=== PATIENT | female | born 1970 ===

== ENCOUNTER 2022-12-31 08:52 | Inpatient (IN) | payer OTHER, SELFPAY ==
[2022-12-31] VITALS (13 sets, daily range): BP systolic 102–137; BP diastolic 68–89; PULSE 71–86; RESP 16–18; TEMP 35.9–37; O2SAT 94–99; BMI 27.5; BMI 28.2
[2022-12-31 09:15] LABS: Appearance Urine Slightly Cloudy (Clear); Bilirubin Urine Negative (Negative); Blood Urine Trace-intact (Negative); Color Urine Yellow (Yellow); Glucose Urine Negative (Negative); Ketones Urine 1+ (Negative); Leukocyte Esterase Urine Negative (Negative); Nitrite Urine Negative (Negative); Protein Urine 1+ (Negative); Specific Gravity Urine 1.025 (1.000-1.030); Urobilinogen Urine 0.2 (0.2-1.0)
--- NOTE | 2022-12-31 09:21 | CRLHL7_ITS ---
For Patients: As a result of the Century Cures Act, medical imaging exams and procedure reports are released immediately into your electronic medical record. You may view this report before your referring provider. If you have questions, please contact your health care provider. INDICATION: . TECHNIQUE: CT abdomen and pelvis acquired with 100 cc Omnipaque 350 IV contrast. COMPARISON: None. FINDINGS: Lower chest: Unremarkable. Liver: Unremarkable. Normal in size and attenuation. No suspicious masses. Gallbladder and bile ducts: Unremarkable. No stones or inflammation. No biliary dilatation. Pancreas: Unremarkable. No mass or inflammation. Spleen: Unremarkable. Normal in size. No masses. Adrenal glands: Unremarkable. No nodules. Kidneys: Unremarkable. No suspicious masses, stones, or hydronephrosis. GI tract: Short segmental circumferential uniform wall thickening of the descending colon associated with diverticular disease and pericolic fat stranding consistent with acute diverticulitis complicated by coalescent extraluminal gas posteromedial to the colon (series 2; images 81-91) consistent with microperforation. Normal appendix. Vasculature: Abdominal aorta is normal in caliber. Mesenteric arteries are patent. Lymph nodes: No lymphadenopathy. Peritoneum/Abdominal Wall: Trace pelvic ascites. No abscess. Pelvis: Unremarkable. Bones: Unremarkable for age. IMPRESSION: Acute diverticulitis of the descending colon complicated by microperforation. Trace pelvic ascites. No abscess or pneumoperitoneum. Surgical consultation is advised. Please note that all CT scans at this facility use dose modulation, iterative reconstruction, and/or weight-based dosing when appropriate to reduce radiation dose to as low as reasonably achievable. Dictated by Rodrigo Quintana MD @ 12/31/2022 10:21:22 AM (Electronically Signed)
[2022-12-31 09:23] LABS: Bacteria Urine Many; Squamous Epithelial Cell Urine Moderate (None-Few)
--- NOTE | 2022-12-31 09:36 | ED.GENADULT ---
HPI - General Adult General Date Seen: 12/31/22 Chief complaint: Abdominal Pain Stated complaint: abdominal pain Time Seen by Provider: 12/31/22 08:53 Source: patient Mode of arrival: ambulatory Limitations: no limitations History of Present Illness HPI narrative: Patient is a 52-year-old female with no pertinent medical problems presenting to emergency department for left lower quadrant abdominal pain. She states symptoms 1st started 2 days ago and more mild but have been getting worse. She went to the bathroom today issues felt that she had a bowel movement in when she did she got very diaphoretic and felt like she was going to pass out. She no longer feels lightheaded but does states she still has a mild 3 3 to 4/10 pain in the left lower quadrant. She states she has somewhat similar symptoms several years ago when she had uterine fibroids but her uterus has been removed. Has not noticed any blood in stool. No history of diverticulosis or kidney stones. Denies dysuria, chest pain, shortness of breath, dizziness, fevers, chills, polyuria, diarrhea, constipation. She says she has not eaten anything yet today but does not feel dehydrated. Denies any nausea. States the pain is intermittently sharp and dull but is usually a dull pain Related Data Home Medications Medication Instructions Recorded Confirmed atorvastatin PO DAILY 12/31/22 Allergies Allergy/AdvReac Type Severity Reaction Status Date / Time Sulfa (Sulfonamide Allergy Mild GI upset Verified 12/31/22 09:03 Antibiotics) Review of Systems Status of ROS: Reports: 10 or more systems reviewed and unremarkable except as noted in History and below PFSH PFS Surgical History (Updated 12/31/22 @ 11:18 by Dennis Baez MD) History of umbilical hernia repair ?Z98.890 - Other specified postprocedural states (ICD-10) ?Z87.19 - Personal history of other diseases of the digestive system (ICD-10) S/P hysterectomy ?Z90.710 - Acquired absence of both cervix and uterus (ICD-10) Social History (Updated 12/31/22 @ 11:18 by Dennis Baez MD) Narrative: Patient works in [employer] from home. Smoking Status: Never smoker How often do you have a drink containing alcohol: 4 or more times a week How many standard drinks containing alcohol do you have on a typical day: 1 or 2 How often do you have six or more drinks on one occasion: Never AUDIT-C Alcohol total score: 4 Non-prescribed substance use: marijuana (any form) Exam Narrative: Exam Narrative: Const: Well-nourished, Well-developed, in mild distress Eyes: PERRL, no conjunctival injection, and symmetrical lids HENT: Atraumatic external nose and ears. Moist mucous membranes. Neck: Symmetric, trachea midline, No thyromegaly. CVS: RRR, No murmurs or gallops. Peripheral pulses 2+ and equal in all extremities RESP: Unlabored respiratory effort. Clear to auscultation bilaterally. GI: Nontender/Nondistended, No rebound or guarding. MSK:Extremities w/o deformity, Normal Active ROM Skin: Warm, Dry. No rashes or lesions. Neuro: Normal Muscle tone, No focal neurological deficits. Psych: Awake, Alert, & Oriented x3. Appropriate mood and affect. Const: Vital Signs, click to edit/add: Vital Signs - 24 hr 12/31/22 08:59 12/31/22 10:32 12/31/22 10:37 Temperature 96.7 F L Pulse Rate 75 79 Pulse Rate [Pulse Oximeter] 84 Respiratory Rate 16 Blood Pressure 107/68 Blood Pressure [Ri ght Upper Arm] 125/89 Pulse Oximetry 98 94 97 Oxygen Delivery Me thod Room Air 12/31/22 10:45 12/31/22 11:00 12/31/22 11:15 Temperature Pulse Rate 74 74 75 Pulse Rate [Pulse Oximeter] Respiratory Rate Blood Pressure Blood Pressure [Ri ght Upper Arm] Pulse Oximetry 97 96 99 Oxygen Delivery Me thod 12/31/22 11:17 Temperature Pulse Rate 72 Pulse Rate [Pulse Oximeter] Respiratory Rate Blood Pressure 124/74 Blood Pressure [Ri ght Upper Arm] Pulse Oximetry 98 Oxygen Delivery Me thod Course Vital Signs Vital signs: Initial Vital Signs Temperature 96.7 F L 12/31/22 08:59 Temperature Source Temporal Artery Scan 12/31/22 08:59 Pulse Rate 84 12/31/22 08:59 Respiratory Rate 16 12/31/22 08:59 Blood Pressure 125/89 12/31/22 08:59 Blood Pressure Mean 101 12/31/22 08:59 Blood Pressure Position Sitting 12/31/22 08:59 Pulse Oximetry 98 12/31/22 08:59 Oxygen Delivery Method Room Air 12/31/22 08:59 Vital Signs Temperature 96.7 F L 12/31/22 08:59 Pulse Rate 84 12/31/22 08:59 Respiratory Rate 16 12/31/22 08:59 Blood Pressure 125/89 12/31/22 08:59 Pulse Oximetry 98 12/31/22 08:59 Oxygen Delivery Method Room Air 12/31/22 08:59 Temperature 96.7 F L 12/31/22 08:59 Pulse Rate 72 12/31/22 11:17 Respiratory Rate 16 12/31/22 08:59 Blood Pressure 124/74 12/31/22 11:17 Pulse Oximetry 98 12/31/22 11:17 Oxygen Delivery Method Room Air 12/31/22 08:59 Medical Decision Making MDM Narrative Medical decision making narrative: patient is a 52-year-old female with left lower quadrant abdominal pain. Pain to going for few days. Worse today. She had episodes of diaphoresis and lightheadedness when she was trying a bowel movement that has since resolved. was still having some mild to moderate pain at this time. Does not want morphine will take Toradol she states. She states she feels thirsty And we will give her a L of fluids. CBC, CMP, lipase, urinalysis all ordered. Lab work returns showing no concerning abnormalities no clear signs of infection at this time. Urinalysis shows no concerning abnormalities. Does not appear to be infected. We did do the CT scan to look for signs of a kidney stone, diverticulitis or other abnormalities. It returned showing diverticulitis with microperforations. I spoke to the on-call surgeon, Dr. Baez, and she states patient needs to be admitted for IV antibiotics. Patient is agreeable to this plan. I spoke to Dr. Cano and he would accept her. She recommends starting her on Ertapenem. Lab Data Labs: Lab Results 12/31/22 12/31/22 Range/Units 09:08 09:32 WBC 9.88 (4.50-11.00) K/uL RBC 4.52 (4.00-5.20) m/uL Hgb 13.7 (12.0-16.0) gm/dL Hct 39.7 (33.0-51.0) % MCV 88 (80-100) fL MCH 30 (26-34) pg MCHC 35 (32-36) gm/dL RDW Coeff of Tj 12.1 (11.5-15.5) % Plt Count 205 (140-440) K/uL Neut % (Auto) 79.9 H (42.0-72.0) % Lymph % (Auto) 10.7 L (20-44) % [place] % (Auto) 8.6 (0.0-11.0) % Eos % (Auto) 0.4 (0.0-7.0) % Baso % (Auto) 0.2 (0.0-3.0) % Neut # (Auto) 7.90 H (1.7-7.0) K/uL Lymph # (Auto) 1.10 (0.90-2.90) K/uL [place] # (Auto) 0.80 (0.00-0.90) K/UL Eos # (Auto) 0.04 (0.00-0.50) K/uL Baso # (Auto) 0.02 (0.00-0.30) K/uL Abs Immat Gran (auto) 0.02 (0.00-0.30) K/uL Imm/Tot Granulo (auto) 0.2 % Sodium 139 (135-149) mmol/L Potassium 3.7 (3.6-5.1) mmol/L Chloride 104 (96-114) mmol/L Carbon Dioxide 24 (20-32) mmol/L Anion Gap 11 (7-15) mEq/L BUN 8 (7-30) mg/dL Creatinine 0.7 (0.5-1.5) mg/dL Estimated Creat Clear 86.52 Estimated GFR 105 ml/min Glucose 116 H (60-115) mg/dL Calcium 9.6 (8.4-10.6) mg/dL Total Bilirubin 0.9 (0.1-1.5) mg/dL AST 26 (12-35) U/L ALT 19 (4-35) U/L Alkaline Phosphatase 78 (40-150) U/L Total Protein 7.5 (6.0-8.3) g/dL Albumin 4.3 (3.3-5.0) g/dL Lipase 91 (23-300) U/L Urine Color Yellow (Yellow) Urine Appearance Slightly Cloudy A (Clear) Urine pH 7.0 (5.0-8.5) Ur Specific [place] 1.025 (1.000-1.030) Urine Protein 1+ A (Negative) Urine Glucose (UA) Negative (Negative) Urine Ketones 1+ A (Negative) Urine Blood Trace-intact A (Negative) Urine Nitrite Negative (Negative) Urine Bilirubin Negative (Negative) Urine Urobilinogen 0.2 (0.2-1.0) Ur Leukocyte Esterase Negative (Negative) Urine RBC 2-5 A (0-2) Urine WBC 2-5 (0-5) Ur Squamous Epith Cells Moderate A (None-Few) Urine Bacteria Many A (None) Imaging Data CT scan abdomen and pelvis: Radiologist's impression: INDICATION: . TECHNIQUE: CT abdomen and pelvis acquired with 100 cc Omnipaque 350 IV contrast. COMPARISON: None. FINDINGS: Lower chest: Unremarkable. Liver: Unremarkable. Normal in size and attenuation. No suspicious masses. Gallbladder and bile ducts: Unremarkable. No stones or inflammation. No biliary dilatation. Pancreas: Unremarkable. No mass or inflammation. Spleen: Unremarkable. Normal in size. No masses. Adrenal glands: Unremarkable. No nodules. Kidneys: Unremarkable. No suspicious masses, stones, or hydronephrosis. GI tract: Short segmental circumferential uniform wall thickening of the descending colon associated with diverticular disease and pericolic fat stranding consistent with acute diverticulitis complicated by coalescent extraluminal gas posteromedial to the colon (series 2; images 81-91) consistent with microperforation. Normal appendix. Vasculature: Abdominal aorta is normal in caliber. Mesenteric arteries are patent. Lymph nodes: No lymphadenopathy. Peritoneum/Abdominal Wall: Trace pelvic ascites. No abscess. Pelvis: Unremarkable. Bones: Unremarkable for age. IMPRESSION: Acute diverticulitis of the descending colon complicated by microperforation. Trace pelvic ascites. No abscess or pneumoperitoneum. Surgical consultation is advised. Please note that all CT scans at this facility use dose modulation, iterative reconstruction, and/or weight-based dosing when appropriate to reduce radiation dose to as low as reasonably achievable. Dictated by Rodrigo Quintana MD @ 12/31/2022 10:21:22 AM Discharge Plan Discharge Clinical Impression: Diverticulitis Patient Disposition: Admitted As Observation Discharge Location: [facility] Condition: Stable
[2022-12-31] MEDS: KETOROLAC 15 MG/ML inj IVP (09:39)
[2022-12-31 09:48] LABS: Basophils Absolute Auto 0.02 K/uL (0.00-0.30); Basophils Percent Auto 0.2 % (0.0-3.0); Eosinophils Absolute Auto 0.04 K/uL (0.00-0.50); Eosinophils Percent Auto 0.4 % (0.0-7.0); Hematocrit 39.7 % (33.0-51.0); Hemoglobin* 13.7 gm/dL (12.0-16.0); Immature Granulocytes Abs Auto 0.02 K/uL (0.00-0.30); Immature Granulocytes Pct Auto 0.2 %; Lymphocytes Percent Auto 10.7 % (20-44); Mean Corpuscular HGB Conc 35 gm/dL (32-36); Mean Corpuscular Hemoglobin 30 pg (26-34); Mean Corpuscular Volume 88 fL (80-100); Monocytes Percent Auto 8.6 % (0.0-11.0); Neutrophils Percent Auto 79.9 % (42.0-72.0); Platelet Count* 205 K/uL (140-440); RDW Coefficient of Variation % 12.1 % (11.5-15.5); Red Blood Count 4.52 m/uL (4.00-5.20); White Blood Count* 9.88 K/uL (4.50-11.00)
[2022-12-31 09:50] LABS: Slide Review Reflex No
[2022-12-31 10:06] LABS: Albumin* 4.3 g/dL (3.3-5.0); Chloride* 104 mmol/L (96-114)
[2022-12-31 10:07] LABS: Potassium* 3.7 mmol/L (3.6-5.1); Sodium* 139 mmol/L (135-149)
[2022-12-31 10:09] LABS: Alkaline Phosphatase* 78 U/L (40-150); Anion Gap 11 mEq/L (7-15); Aspartate Amino Transferase* 26 U/L (12-35); Bilirubin Total* 0.9 mg/dL (0.1-1.5); Carbon Dioxide* 24 mmol/L (20-32); Creatinine* 0.7 mg/dL (0.5-1.5); Est. Creatinine Clearance* 86.52; Estimated Glomerular Filt Rate 105 ml/min; Total Protein* 7.5 g/dL (6.0-8.3)
[2022-12-31 10:10] LABS: Alanine Aminotransferase* 19 U/L (4-35); Blood Urea Nitrogen* 8 mg/dL (7-30); Calcium* 9.6 mg/dL (8.4-10.6); Glucose* 116 mg/dL (60-115); Lipase* 91 U/L (23-300)
[2022-12-31] MEDS: LACTATED RINGERS 1000 ML 1,000 ML IV (10:15)
--- NOTE | 2022-12-31 11:13 | PM.GSCN ---
History of Present Illness Consult details Date Seen: 12/31/22 Consult date: 12/31/22 Narrative: 52-year-old female presented to emergency room with left lower quadrant abdominal pain and I was asked by Dr. London to see her in consultation. Patient states that she started to experience left lower quadrant abdominal pain on . She was not eating well because she did not have a great appetite. She continued to have small bowel movements in the last several days. Last night she felt chills and felt feverish. When she woke up in the morning her pain was significantly worse and she got sweaty while sitting on the toilet. She asked her to bring her to the emergency room. Patient describes her abdominal pain as sharp and constant. Patient has never had anything similar in the past. Patient had a colonoscopy in October of 2022 with pre cancerous polyp removed ?close to her rectum?. This was done at [facility] in [place]. Upon her workup she was found to have normal WBC. An abdominal CT was obtained that showed thickening in the short segment of the descending colon with fat stranding and localized free air consistent with microperforation. Review of Systems Narrative: General: no fevers HENT: no problems swallowing CV: no shortness of breath Resp: no cough GI: No nausea, vomiting, abdominal pain : no dysuria, no increased urinary frequency, no hematuria Skin: no new rashes Musculoskeletal: no back pain Neuro: no muscle weakness Psyche: no depression, no anxiety [facility] Surgical History (Updated 12/31/22 @ 11:18 by Dennis Baez MD) History of umbilical hernia repair ?Z98.890 - Other specified postprocedural states (ICD-10) ?Z87.19 - Personal history of other diseases of the digestive system (ICD-10) S/P hysterectomy ?Z90.710 - Acquired absence of both cervix and uterus (ICD-10) Social History (Updated 12/31/22 @ 11:18 by Dennis Baez MD) Narrative: Patient works in [employer] from home. Smoking Status: Never smoker How often do you have a drink containing alcohol: 4 or more times a week How many standard drinks containing alcohol do you have on a typical day: 1 or 2 How often do you have six or more drinks on one occasion: Never AUDIT-C Alcohol total score: 4 Non-prescribed substance use: marijuana (any form) Meds Home Medications and Allergies Home Medications Medication Instructions Recorded Confirmed Type atorvastatin PO DAILY 12/31/22 History Allergies Allergy/AdvReac Type Severity Reaction Status Date / Time Sulfa (Sulfonamide Allergy Mild GI upset Verified 12/31/22 09:03 Antibiotics) Exam Narrative: Exam Narrative: General appearance: Alert, cooperative, and in no distress Pulmonary: Chest symmetric, lungs clear bilaterally Cardiovascular Heart: Regular rate and rhythm, S1, S2, no murmurs/rubs/gallops Gastrointestinal Abdominal: soft, not distended, tender to palpation in left lower quadrant, not tender anywhere else Skin: Normal skin color, texture, and turgor. No rashes or lesions. Psychiatric: Alert, cooperative, normal affect. Const: Vital Signs, click to edit/add: Vital Signs - 24 hr 12/31/22 08:59 12/31/22 10:32 12/31/22 10:37 Temperature 96.7 F L Pulse Rate 75 79 Pulse Rate [Pulse Oximeter] 84 Respiratory Rate 16 Blood Pressure 107/68 Blood Pressure [Ri ght Upper Arm] 125/89 Pulse Oximetry 98 94 97 Oxygen Delivery Me thod Room Air 12/31/22 10:45 Temperature Pulse Rate 74 Pulse Rate [Pulse Oximeter] Respiratory Rate Blood Pressure Blood Pressure [Ri ght Upper Arm] Pulse Oximetry 97 Oxygen Delivery Me thod Results Labs Labs: Abnormal lab results 12/31/22 12/31/22 Range/Units 09:08 09:32 Neut % (Auto) 79.9 H (42.0-72.0) % Lymph % (Auto) 10.7 L (20-44) % Neut # (Auto) 7.90 H (1.7-7.0) K/uL Glucose 116 H (60-115) mg/dL Urine Appearance Slightly Cloudy A (Clear) Urine Protein 1+ A (Negative) Urine Ketones 1+ A (Negative) Urine Blood Trace-intact A (Negative) Urine RBC 2-5 A (0-2) Ur Squamous Epith Cells Moderate A (None-Few) Urine Bacteria Many A (None) Diabetes panel 12/31/22 Range/Units 09:32 Sodium 139 (135-149) mmol/L Potassium 3.7 (3.6-5.1) mmol/L Chloride 104 (96-114) mmol/L Carbon Dioxide 24 (20-32) mmol/L BUN 8 (7-30) mg/dL Creatinine 0.7 (0.5-1.5) mg/dL Glucose 116 H (60-115) mg/dL Calcium 9.6 (8.4-10.6) mg/dL AST 26 (12-35) U/L ALT 19 (4-35) U/L Alkaline Phosphatase 78 (40-150) U/L Total Protein 7.5 (6.0-8.3) g/dL Albumin 4.3 (3.3-5.0) g/dL Calcium panel 12/31/22 Range/Units 09:32 Calcium 9.6 (8.4-10.6) mg/dL Albumin 4.3 (3.3-5.0) g/dL Pituitary panel 12/31/22 Range/Units 09:32 Sodium 139 (135-149) mmol/L Potassium 3.7 (3.6-5.1) mmol/L Chloride 104 (96-114) mmol/L Carbon Dioxide 24 (20-32) mmol/L BUN 8 (7-30) mg/dL Creatinine 0.7 (0.5-1.5) mg/dL Glucose 116 H (60-115) mg/dL Calcium 9.6 (8.4-10.6) mg/dL Adrenal panel 12/31/22 Range/Units 09:32 Sodium 139 (135-149) mmol/L Potassium 3.7 (3.6-5.1) mmol/L Chloride 104 (96-114) mmol/L Carbon Dioxide 24 (20-32) mmol/L BUN 8 (7-30) mg/dL Creatinine 0.7 (0.5-1.5) mg/dL Glucose 116 H (60-115) mg/dL Calcium 9.6 (8.4-10.6) mg/dL Total Bilirubin 0.9 (0.1-1.5) mg/dL AST 26 (12-35) U/L ALT 19 (4-35) U/L Alkaline Phosphatase 78 (40-150) U/L Total Protein 7.5 (6.0-8.3) g/dL Albumin 4.3 (3.3-5.0) g/dL All other labs normal. Assessment and Plan Assessment and plan (1) Acute diverticulitis: Status: Acute Plan 52-year-old female presents with complicated descending diverticulitis. I discussed with the patient and her her laboratory and imaging findings. Her WBC is normal. On her CT she has a short segment of acute diverticulitis in the descending colon with pericolonic stranding and free air. This seems to be localized and her clinical exam is suggestive of localized inflammation. I recommended to admit this patient for observation and IV antibiotics. I would recommend keeping her NPO until tomorrow. Patient is not completely obstructed. If patient continues to improve clinically with her pain, we could discharge her home on IV antibiotics for at least 7 days.
[2022-12-31] MEDS: ERTAPENEM 1 GM in 0.9 % SODIUM CHLORIDE Mini-bag 100 ML IVPB (11:15)
[2022-12-31] MEDS: HYDROmorphone 0.5 mg/0.5 ml inj IVP ×6 (12:42→19:48)
[2022-12-31] MEDS: LACTATED RINGERS 1000 ML 1,000 ML 100 ML IV ×2 (13:23→21:57)
[2022-12-31] MEDS: ONDANSETRON 2 MG/ML inj 4 MG IVP ×2 (16:38→20:41)
--- NOTE | 2022-12-31 17:17 | PM.IMHP1 ---
Hospitalist- H&P: HPI History of Present Illness Date Seen: 12/31/22 Chief complaint: abdominal pain Narrative: Mera Villagran is a 52 year old previously healthy female admitted through the emergency department with 2-3 day history of left side abdominal pain. This began on December 28 with a left lower quadrant crampy pain. Symptoms were intermittent and fluctuating but progressively got worse over the next 2-3 days. This morning she felt the urge to have bowel movement she was sitting on the toilet having a bowel movement and she was suddenly feeling like she was about to pass out she said the room was starting to look dark she was diaphoretic. She laid on the floor and called for her . He called 911 and she was brought to the emergency room for evaluation. In the emergency department she was found to have diverticulitis with micro perforation. She has had no previous history of diverticulitis. She did have colonoscopy in October of 2022 through [facility]. They found a fairly large polyp that was reportedly pre cancerous. It sounds like it was in the sigmoid. They recommended repeat colonoscopy in 3 years. No other history of bowel or gastrointestinal problems. Past surgical history is unknown umbilical hernia repair, robotic assisted laparoscopic total hysterectomy. She has also had 2 vaginal deliveries, tonsillectomy and adenoidectomy as a child and wisdom teeth extractions. Review of Systems Narrative: Prior to the onset of symptoms 2-3 days ago she was feeling well. No other health concerns recently [facility] Medical History (Updated 12/31/22 @ 17:29 by J Luis Cano MD) Menopause ?Z78.0 - Asymptomatic menopausal state (ICD-10) Surgical History (Updated 12/31/22 @ 17:23 by J Luis Cano MD) H/O wisdom tooth extraction ?K08.409 - Partial loss of teeth, unspecified cause, unspecified class (ICD-10) History of tonsillectomy and adenoidectomy ?Z90.89 - Acquired absence of other organs (ICD-10) History of umbilical hernia repair ?Z98.890 - Other specified postprocedural states (ICD-10) ?Z87.19 - Personal history of other diseases of the digestive system (ICD-10) S/P hysterectomy ?Z90.710 - Acquired absence of both cervix and uterus (ICD-10) Family History (Updated 12/31/22 @ 17:24 by J Luis Cano MD) Mother High blood pressure Father High cholesterol Social History (Updated 12/31/22 @ 17:26 by J Luis Cano MD) Narrative: She is . Lives with her , dog and cat. Together they have 3 children who are adults. They live in [place]. 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 She does not smoke cigarettes. She drinks 2 alcoholic beverages per day. She occasionally consumes THC gummies. What is your current living situation?: I presently have a place to live Problems where you live: no known problems Problems where you live details: N/A In the past 12 months, utilities in danger of being shut off: no In past 12 months, lack of transportation kept you from medical appts, meetings, work, or getting things needed for daily living: no In the past 12 mos, have been you worried that your food would run out before you had money to buy more?: never true In the past 12 mos, the food you bought just didn't last and you didn't have money to buy more?: never true Smoking Status: Unknown if ever smoked How often do you have a drink containing alcohol: 4 or more times a week How many standard drinks containing alcohol do you have on a typical day: 1 or 2 How often do you have six or more drinks on one occasion: Never AUDIT-C Alcohol total score: 4 Non-prescribed substance use: denies use Caffeine: Yes How often does anyone, including family, friends and others, physically hurt you: never How often does anyone, including family, friends and others, insult or talk down to you: never How often does anyone, including family, friends and others, threaten you with harm: never How often does anyone, including family, friends and others, scream or curse at you: never service: No Meds Home Medications and Allergies Home Medications Medication Instructions Recorded Confirmed Type atorvastatin 20 mg tablet 20 mg PO HS 12/31/22 12/31/22 History estradiol 0.25 mg/0.25 gram (0.1 1 packet transdermal DAILY 12/31/22 12/31/22 History %) transdermal gel packet loratadine 10 mg tablet (Claritin) 10 mg PO DAILY 12/31/22 12/31/22 History progesterone micronized 200 mg 200 mg PO QPM 12/31/22 12/31/22 History capsule valacyclovir 1 gram tablet 2,000 mg PO BID 12/31/22 12/31/22 History Allergies Allergy/AdvReac Type Severity Reaction Status Date / Time Sulfa (Sulfonamide Allergy Mild GI upset Verified 12/31/22 09:03 Antibiotics) Exam Narrative: Exam Narrative: She is alert and appears in no distress. Eyes normal. Oropharynx with small airway. Neck is supple without mass or adenopathy. Respirations are clear to auscultation. Cardiovascular: S1, S2, regular rate and rhythm. No murmur gallop or rub. Abdomen: Bowel sounds active. Abdomen is soft. She has moderate left lower quadrant tenderness. No other tenderness. No peritonitis. Extremities without edema. She moves all 4 extremities well. No rash. Const: Vital Signs, click to edit/add: Vital Signs - 24 hr 12/31/22 08:59 12/31/22 10:32 12/31/22 10:37 Temperature 96.7 F L Pulse Rate 75 79 Pulse Rate [Apical ] Pulse Rate [Pulse Oximeter] 84 Respiratory Rate 16 Blood Pressure 107/68 Blood Pressure [Le ft Arm] Blood Pressure [Ri ght Upper Arm] 125/89 Pulse Oximetry 98 94 97 [facility] 12/31/22 10:45 12/31/22 11:00 12/31/22 11:15 Temperature Pulse Rate 74 74 75 Pulse Rate [Apical ] Pulse Rate [Pulse Oximeter] Respiratory Rate Blood Pressure Blood Pressure [Le ft Arm] Blood Pressure [Ri ght Upper Arm] Pulse Oximetry 97 96 99 [facility] 12/31/22 11:17 12/31/22 11:54 12/31/22 15:00 Temperature 98.2 F Pulse Rate 72 Pulse Rate [Apical ] 77 74 Pulse Rate [Pulse Oximeter] Respiratory Rate 18 18 Blood Pressure 124/74 Blood Pressure [Le ft Arm] 137/82 Blood Pressure [Ri ght Upper Arm] Pulse Oximetry 98 97 [facility] 12/31/22 15:00 Temperature 98.2 F Pulse Rate Pulse Rate [Apical ] 74 Pulse Rate [Pulse Oximeter] Respiratory Rate 18 Blood Pressure Blood Pressure [Le ft Arm] 115/84 Blood Pressure [Ri ght Upper Arm] Pulse Oximetry 97 Oxygen Delivery Me thod Room Air Documenting provider has reviewed patient's vital signs: yes Hospitalist - H&P: Result Labs Labs: Short CBC 12/31/22 Range/Units 09:32 WBC 9.88 (4.50-11.00) K/uL Hgb 13.7 (12.0-16.0) gm/dL Hct 39.7 (33.0-51.0) % Plt Count 205 (140-440) K/uL BMP 12/31/22 09:32 Sodium 139 Potassium 3.7 Chloride 104 Carbon Dioxide 24 BUN 8 Creatinine 0.7 Glucose 116 H Calcium 9.6 Liver Function 12/31/22 Range/Units 09:32 Total Bilirubin 0.9 (0.1-1.5) mg/dL AST 26 (12-35) U/L ALT 19 (4-35) U/L Alkaline Phosphatase 78 (40-150) U/L Albumin 4.3 (3.3-5.0) g/dL Urine 12/31/22 Range/Units 09:08 Urine Color Yellow (Yellow) Urine Appearance Slightly Cloudy A (Clear) Urine pH 7.0 (5.0-8.5) Ur Specific [place] 1.025 (1.000-1.030) Urine Protein 1+ A (Negative) Urine Glucose (UA) Negative (Negative) Assessment and Plan Assessment and plan (1) Diverticulitis: Problem comment: With micro perforation. Admit. Surgical consult. IV antibiotics. NPO tonight Status: Acute Plan Continue in hospital for IV antibiotics and IV fluids pending clinical improvement. Total time spent today is 70 minutes, 40 minutes in coordination of care and discussing with patient, , other providers ongoing management of diverticulitis.
[2022-12-31] MEDS: diphenhydrAMINE 50 MG/ML inj 25 MG IVP (18:57)
--- NOTE | 2022-12-31 19:05 | PC.NURSE ---
VSS AND AFEBRILE. LS CLEAR. ON ADMIT, PATIENT REPORTED SHE WAS NOT PASSING GAS BUT THIS EVENING STATED SHE HAD BEGUN PASSING GAS. CONTINUES TO HAVE LLQ ABDOMINAL PAIN 4-6/10 THAT IS IMPROVED WITH DILAUDID. INTERMITTENT NAUSEA IMPROVED WITH ZOFRAN. PATIENT DID REPORT ITCHING TO FACE AND STATED SHE HAS A HISTORY OF ITCHING WITH PAIN MEDICATIONS. DR. TURNER CALLED AND ORDER FOR BENADRYL IV RECEIVED AND ADMINISTERED. NPO AT THIS TIME. UP AD BEN IN ROOM TO BATHROOM.
[2022-12-31] MEDS: MELATONIN 3 MG TABLET PO (20:42)
[2022-12-31] MEDS: ATORVASTATIN 10 MG TABLET 20 MG PO (20:43)
[2022-12-31] MEDS: OXYCODONE 5 MG TABLET PO (20:43)
[2022-12-31] MEDS: ENOXAPARIN 40 MG/0.4 ML INJ SUBCUT (20:48)
[2022-12-31] MEDS: ACETAMINOPHEN 325 MG TABLET 650 MG PO (23:37)
[2023-01-01 02:49] VITALS: BP 105/84; PULSE 76; RESP 16; TEMP 36.9; O2SAT 95
--- NOTE | 2023-01-01 03:22 | PC.NURSE ---
Pt rested well this night. Afebrile. VS unremarkable. Pain controlled. No N/V. Pt IND.
[2023-01-01] MEDS: ACETAMINOPHEN 325 MG TABLET 650 MG PO (07:21)
[2023-01-01 07:34] VITALS: BP 113/79; PULSE 82; RESP 16; TEMP 36.7; O2SAT 96
[2023-01-01] MEDS: ERTAPENEM 1 GM in 0.9 % SODIUM CHLORIDE Mini-bag 100 ML IVPB (08:26)
--- NOTE | 2023-01-01 08:35 | PM.GSPN ---
Subjective Subjective Date Seen: 01/01/23 Interval history: Patient is doing well today. Her pain is significantly improved. She continued to be NPO yesterday. She is passing gas. Exam Narrative: Exam Narrative: Abdomen is soft, not distended, minimal discomfort to palpation in left lower quadrant, significantly improved from yesterday. Const: Vital Signs, click to edit/add: Vital Signs - 24 hr 12/31/22 08:59 12/31/22 10:32 12/31/22 10:37 Temperature 96.7 F L Pulse Rate 75 79 Pulse Rate [Apical ] Pulse Rate [Pulse Oximeter] 84 Respiratory Rate 16 Blood Pressure 107/68 Blood Pressure [Le ft Arm] Blood Pressure [Ri ght Upper Arm] 125/89 Pulse Oximetry 98 94 97 Oxygen Delivery Me thod Room Air 12/31/22 10:45 12/31/22 11:00 12/31/22 11:15 Temperature Pulse Rate 74 74 75 Pulse Rate [Apical ] Pulse Rate [Pulse Oximeter] Respiratory Rate Blood Pressure Blood Pressure [Le ft Arm] Blood Pressure [Ri ght Upper Arm] Pulse Oximetry 97 96 99 Oxygen Delivery Nj thod 12/31/22 11:17 12/31/22 11:54 12/31/22 15:00 Temperature 98.2 F Pulse Rate 72 Pulse Rate [Apical ] 77 74 Pulse Rate [Pulse Oximeter] Respiratory Rate 18 18 Blood Pressure 124/74 Blood Pressure [Le ft Arm] 137/82 Blood Pressure [Ri ght Upper Arm] Pulse Oximetry 98 97 Oxygen Delivery Nj thod Room Air 12/31/22 15:00 12/31/22 19:54 12/31/22 22:02 Temperature 98.2 F 98.6 F 98.4 F Pulse Rate Pulse Rate [Apical ] 74 71 86 Pulse Rate [Pulse Oximeter] Respiratory Rate 18 16 16 Blood Pressure Blood Pressure [Le ft Arm] 115/84 111/70 102/69 Blood Pressure [Ri ght Upper Arm] Pulse Oximetry 97 98 94 Oxygen Delivery Nj thod Room Air Room Air Room Air 12/31/22 22:26 12/31/22 23:37 01/01/23 02:49 Temperature 98.4 F 98.4 F Pulse Rate Pulse Rate [Apical ] 86 76 Pulse Rate [Pulse Oximeter] Respiratory Rate 16 16 Blood Pressure Blood Pressure [Le ft Arm] 105/84 Blood Pressure [Ri ght Upper Arm] Pulse Oximetry 95 Oxygen Delivery Me thod Room Air 01/01/23 07:34 Temperature 98.0 F Pulse Rate Pulse Rate [Apical ] 82 Pulse Rate [Pulse Oximeter] Respiratory Rate 16 Blood Pressure Blood Pressure [Le ft Arm] 113/79 Blood Pressure [Ri ght Upper Arm] Pulse Oximetry 96 Oxygen Delivery Me thod Room Air Progress Note: A&P Assessment and plan (1) Diverticulitis: Problem details: With micro perforation. Admit. Surgical consult. IV antibiotics. NPO tonight Status: Acute Plan 52-year-old female admitted to the hospital with descending diverticulitis with micro perforation. Patient is improving with IV antibiotics. Will advance her diet as tolerated. Patient can discharge home on outpatient IV antibiotics for 7 days. Follow up in clinic p.r.n..
[2023-01-01] MEDS: SODIUM CHLORIDE 0.9 % (FLUSH) 10 ML SYRINGE 5 ML IVF (09:21)
[2023-01-01] MEDS: LACTATED RINGERS 1000 ML 1,000 ML 100 ML IV (09:26)
--- NOTE | 2023-01-01 09:46 | PM.DS1 ---
DS: Providers Provider Date Seen: 01/01/23 Date of admission: 12/31/22 13:26 Primary care physician: Not a Local Provider Admitting Clinician: Bebeto London DO Attending Physician on discharge: [facility] Date of [facility]: 01/01/23 DS: Diagnosis Discharge Diagnosis (1) Diverticulitis of colon with perforation: Status: Acute Problem details: microperf. nonop care. Vitals stable. Afebrile. We appreciate our surgical colleagues following. Patient has done very well with NPO status and conservative care. IV ertapenem x 7 days. DS: Summary Hospital Course Hospital Course: FINAL DIAGNOSIS/FOLLOW UP ISSUES: Acute diverticulitis of the descending colon with microperforation - IV antibiotics for a total of 7 days. Five which will be outpatient. BRIEF HOSPITAL COURSE: Patient was admitted for 2 days. Synopsis of acute inpatient issues are outlined above. Chronic medical conditions with notable findings outlined above. DISCHARGE MEDICATIONS: See Reconciled list - SIGNIFICANT CHANGES: Ertapenem 1 g IV Q 24 hours x5 doses Specific instructions to the patient and follow-up are outlined below. REVIEW OF SYSTEMS No new chest pain or dyspnea Pain controlled No voiding difficulties Tolerating diet challenge PHYSICAL EXAM: CONSTITUTIONAL: VITAL SIGNS: see record. HEENT: Normocephalic, atraumatic. PERRL, EOMI, conjunctivae pink, no scleral icterus. Ears and nose externally normal. Pharynx normal. NECK: No JVD. No carotid bruit, no thyromegaly, no adenopathy. CHEST: Clear to auscultation bilaterally. HEART: S1 and S2 normal. Edema ABDOMEN: Soft, nontender. Normal bowel sounds. Very mild tender to palpation along the left quadrant. MUSCULOSKELETAL: No gross joint deformity or swelling. NEURO: Cranial nerves intact. Grossly intact. No asymmetric findings. SKIN: No rashes, petechiae, concerning changes PSYCHIATRIC: Mood euthymic. DISPOSITION: Home with spouse Time spent on discharge 37 minutes. Status at Discharge Functional status at discharge: independent ambulation Overall status at discharge: patient is progressing back to baseline Time Spent with Patient Time attestation: Total time spent providing and/or coordinating discharge services: Time spent: Greater than 30 minutes Exam Const: Vital Signs, click to edit/add: Vital Signs - 24 hr 12/31/22 10:32 12/31/22 10:37 12/31/22 10:45 Temperature Pulse Rate 75 79 74 Pulse Rate [Apical ] Respiratory Rate Blood Pressure 107/68 Blood Pressure [Le ft Arm] Pulse Oximetry 94 97 97 Oxygen Delivery Me thod 12/31/22 11:00 12/31/22 11:15 12/31/22 11:17 Temperature Pulse Rate 74 75 72 Pulse Rate [Apical ] Respiratory Rate Blood Pressure 124/74 Blood Pressure [Le ft Arm] Pulse Oximetry 96 99 98 Oxygen Delivery Me thod 12/31/22 11:54 12/31/22 15:00 12/31/22 15:00 Temperature 98.2 F 98.2 F Pulse Rate Pulse Rate [Apical ] 77 74 74 Respiratory Rate 18 18 18 Blood Pressure Blood Pressure [Le ft Arm] 137/82 115/84 Pulse Oximetry 97 97 [facility] Room Air 12/31/22 19:54 12/31/22 22:02 12/31/22 22:26 Temperature 98.6 F 98.4 F Pulse Rate Pulse Rate [Apical ] 71 86 86 Respiratory Rate 16 16 16 Blood Pressure Blood Pressure [Le ft Arm] 111/70 102/69 Pulse Oximetry 98 94 [facility] Room Air 12/31/22 23:37 01/01/23 02:49 01/01/23 07:34 Temperature 98.4 F 98.4 F 98.0 F Pulse Rate Pulse Rate [Apical ] 76 82 Respiratory Rate 16 16 Blood Pressure Blood Pressure [Le ft Arm] 105/84 113/79 Pulse Oximetry 95 96 [facility] Room Air DS: Data Data Completed and Pending Labs on day of discharge: Labs from last 24 hours 12/31/22 09:32 WBC 9.88 RBC 4.52 Hgb 13.7 Hct 39.7 MCV 88 MCH 30 MCHC 35 RDW Coeff of Tj 12.1 Plt Count 205 Neut % (Auto) 79.9 H Lymph % (Auto) 10.7 L Citrus % (Auto) 8.6 Eos % (Auto) 0.4 Baso % (Auto) 0.2 Neut # (Auto) 7.90 H Lymph # (Auto) 1.10 Citrus # (Auto) 0.80 Eos # (Auto) 0.04 Baso # (Auto) 0.02 Abs Immat Gran (auto) 0.02 Imm/Tot Granulo (auto) 0.2 Sodium 139 Potassium 3.7 Chloride 104 Carbon Dioxide 24 Anion Gap 11 BUN 8 Creatinine 0.7 Estimated Creat Clear 86.52 Estimated GFR 105 Glucose 116 H Calcium 9.6 Total Bilirubin 0.9 AST 26 ALT 19 Alkaline Phosphatase 78 Total Protein 7.5 Albumin 4.3 Lipase 91 Preliminary micro results at discharge 12/31/22 Unknown Urine Culture - Preliminary Urine,Clean Catch <10,000 COL/ML GRAM POSITIVE [place] [facility] CT scan - abdomen: Attestation: I have reviewed the pertinent imaging results. Radiologist's impression: Acute diverticulitis of the descending colon complicated by microperforation. Trace pelvic ascites. No abscess or pneumoperitoneum. Surgical consultation is advised. Discharge Plan Discharge Disposition: Home, Self-Care Date of Admission: 12/31/22 13:26 Attending Provider on Discharge: Aleena Santacruz Primary Care Provider: Provider,Not a Local Condition: Stable Anticipated Discharge Date/Time: 01/01/23 12:00 Discharge Medications: New oxycodone 5 mg Tablet 5 - 10 mg PO Q4H PRN (Reason: Pain) Qty: 10 0RF ondansetron 4 mg tablet,disintegrating 4 mg PO Q8H Qty: 15 0RF Continued atorvastatin 20 mg tablet 20 mg PO HS estradiol 0.25 mg/0.25 gram (0.1 %) gel in packet 1 packet transdermal DAILY valacyclovir 1 gram tablet 2,000 mg PO BID Patient Comments: 2 grams bid x 1 day progesterone micronized 200 mg capsule 200 mg PO QPM Patient Comments: takes orally loratadine [Claritin] 10 mg tablet 10 mg PO DAILY Discharge Orders: Discharge Order (Routine); Ordered 01/01/23 Ordered By: Aleena Santacruz Activity Level: Activity as Tolerated Discharge Diet: Regular Diet Detail: Go easy on your diet. Small frequent snacking and meals are appropriate. Eat as if you are getting over the stomach flu. Follow Up Appointments: Provider,Not a Local [Primary Care Provider] - Forms: [facility] Info Instructions
--- NOTE | 2023-01-01 10:45 | PC.NURSE ---
PATIENT HAS DENIED N/V TODAY WHEN ASKED AND HAS HAD NO PAIN SO FAR THIS SHIFT OTHER THAN 4/10 HEADACHE PAIN. PATIENT DOES REPORT SHE IS A COFFEE DRINKER SO THIS COULD BE RELATED TO HAVING NO CAFFEINE PATIENT WAS NPO AT START OF SHIFT. PATIENT HAS BEEN ADVANCED TO REGULAR DIET TOLERATED PER MD HUTSON. PATIENT HAD CLEAR LIQUIDS FOR BREAKFAST AND WILL ADVANCE DIET WITH LUNCH IN ORDER TO DISCHARGE THIS AFTERNOON IF DIET IS TOLERATED. PATIENT IS INDEPENDENT WITH ALL ADLS INCLUDING SHOWERING. VSS. LUNG SOUNDS HAVE BEEN CLEAR TO ALL LOBES BILATERALLY AND BOWEL SOUNDS HAVE BEEN ACTIVE IN ALL FOUR QUADRANTS. PATIENT HAS NOT YET HAD A BOWEL MOVEMENT TODAY THOUGH REPORTS SHE IS PASSING GAS WHEN ASKED. PATIENT REQUESTING TO USE PRN TYLENOL FOR PAIN CONTROL DUE TO DILAUDID CAUSING ITCHINESS TO FACE PER HER REPORT.
--- NOTE | 2023-01-01 13:10 | PC.NURSE ---
PATIENT DISCHARGED WITH SPOUSE AT 1300 TODAY. PATIENT DENIED PAIN AND N/V WHEN ASKED UPON DISCHARGE. PATIENT WAS ABLE TO COMPLETE ALL ADLS INDEPENDENTLY INCLUDING COMPLETING SHOWER THIS MORNING. SHE ATE APPROXIMATELY 50% OF SCRAMBLED EGGS AND WHEAT TOAST FOR LUNCH AND WAS TOLERATING WATER PO. PATIENT HAD ONE LARGE SOFT BOWEL MOVEMENT BEFORE DISCHARGE AND WAS VOIDING WELL WITH LAST VOID OF 200 ML. OLD IV TO R AC WAS DISCONTINUED AND NEW IV WAS PLACED TO L INNER FOREARM DUE TO PATIENT CONTINUING WITH DAILY INFUSION OF ANTIBIOTIC AT [facility]ION [facility]ENTER.
== END 2023-01-01 13:00 | disposition home or self-care (01) | DRG 392 ==
LOC: ED 11:23 → MEDSURG 11:27
PROVIDERS: Admitting Provider Student in an Organized Health Care Education/Training Program; Emergency Provider Student in an Organized Health Care Education/Training Program; Visit Provider Family Medicine
DX: K57.20 Diverticulitis of large intestine with perforation and abscess without bleeding (principal)
CPT/HCPCS: 36415; 74177; 80053; 81001; 83690; 85025; 87086; 99283; 99285; A9270; J1170; J1200; J1335; J1650; J1885; J2405; J7120; Q9967

== ENCOUNTER 2023-01-05 08:00 | Outpatient (RCR) | payer OTHER, SELFPAY ==
[2023-01-02 08:26] VITALS: BP 142/86; PULSE 66; RESP 16; TEMP 36.3; O2SAT 97
[2023-01-02] MEDS: ERTAPENEM 1 GM in 0.9 % SODIUM CHLORIDE 100 ml 100 ML IVPB (08:59)
[2023-01-02] MEDS: 0.9 % SODIUM CHLORIDE 250 ml IV (10:32)
[2023-01-02] MEDS: SODIUM CHLORIDE 0.9 % (FLUSH) 10 ML SYRINGE IVF (10:33)
[2023-01-03 09:07] VITALS: BP 134/89; PULSE 64; RESP 16; TEMP 35.9; O2SAT 98
[2023-01-03] MEDS: SODIUM CHLORIDE 0.9 % (FLUSH) 10 ML SYRINGE IVF (09:19)
[2023-01-03] MEDS: 0.9 % SODIUM CHLORIDE 250 ml IV (09:19)
[2023-01-03] MEDS: ERTAPENEM 1 GM in 0.9 % SODIUM CHLORIDE 100 ml 100 ML IVPB (09:22)
[2023-01-04 10:38] VITALS: BP 119/79; PULSE 68; RESP 16; TEMP 36.1; O2SAT 97
[2023-01-04] MEDS: ERTAPENEM 1 GM in 0.9 % SODIUM CHLORIDE 100 ml 100 ML IVPB (10:58)
[2023-01-04] MEDS: 0.9 % SODIUM CHLORIDE 250 ml IV (11:00)
[2023-01-04] MEDS: SODIUM CHLORIDE 0.9 % (FLUSH) 10 ML SYRINGE IVF (12:04)
[2023-01-05 08:06] VITALS: BP 113/79; PULSE 74; RESP 16; TEMP 36; O2SAT 95
[2023-01-05] MEDS: ERTAPENEM 1 GM in 0.9 % SODIUM CHLORIDE 100 ml 100 ML IVPB (08:12)
[2023-01-05] MEDS: 0.9 % SODIUM CHLORIDE 250 ml IV (08:13)
[2023-01-05] MEDS: SODIUM CHLORIDE 0.9 % (FLUSH) 10 ML SYRINGE IVF (08:13)
[2023-01-06] MEDS: ERTAPENEM 1 GM in 0.9 % SODIUM CHLORIDE 100 ml 100 ML IVPB (09:35)
[2023-01-06] MEDS: SODIUM CHLORIDE 0.9 % (FLUSH) 10 ML SYRINGE IVF (09:36)
[2023-01-06 09:45] VITALS: BP 118/80; PULSE 83; RESP 16; TEMP 36.4; O2SAT 98
== END 2023-07-01 23:59 | disposition home or self-care (01) ==
LOC: CCIC 08:00
PROVIDERS: Visit Provider Family Medicine
DX: K57.20 Diverticulitis of large intestine with perforation and abscess without bleeding (principal)
CPT/HCPCS: 96365; 99211; J1335; J7050

== ENCOUNTER 2023-02-08 14:27 | Outpatient (CLI) | payer OTHER, SELFPAY ==
--- NOTE | 2023-02-08 15:00 | CRLHL7_ITS ---
For Patients: As a result of the Century Cures Act, medical imaging exams and procedure reports are released immediately into your electronic medical record. You may view this report before your referring provider. If you have questions, please contact your health care provider. INDICATION: Diverticulitis. Left lower quadrant pain. COMPARISON: 12/31/2022. TECHNIQUE: CT abdomen pelvis with IV contrast. Isovue 370, 81 cc. FINDINGS: Liver and gallbladder: Normal. Spleen: Normal. Pancreas: Normal. Adrenal glands: Normal. Kidneys: No renal masses. No hydronephrosis. GI: Interval decrease and resolution of previously noted inflammatory change about the descending colon sigmoid colon. Resolution of previously noted small extraluminal gas. Persistent sigmoid diverticulosis without diverticulitis. No bowel wall distention. No new bowel wall thickening or inflammation. Normal appendix. Vascular: Normal. Lymph nodes: No adenopathy. Peritoneum: No free-fluid. Pelvis: Unremarkable. Skeletal: Normal alignment. No fractures. Lung bases: Lung bases are clear. IMPRESSION: 1. Interval resolution of previously noted inflammatory change about the descending and sigmoid colon. Associated resolution of previously noted small extraluminal gas adjacent to the site of for diverticulitis. 2. Persistent sigmoid diverticulosis without diverticulitis. 3. No adenopathy. 4. No free fluid Please note that all CT scans at this facility use dose modulation, iterative reconstruction, and/or weight-based dosing when appropriate to reduce radiation dose to as low as reasonably achievable. Dictated by Isidoro Lan MD @ 02/12/2023 1:19:56 PM (Electronically Signed)
== END 2023-02-08 14:28 | disposition home or self-care (01) ==
PROVIDERS: Visit Provider Surgery
DX: K57.20 Diverticulitis of large intestine with perforation and abscess without bleeding (principal); R10.32 Left lower quadrant pain
CPT/HCPCS: 74177; Q9967